=== PATIENT | female | born 1950 ===

== ENCOUNTER → 2019-03-22 | Emergency (ER) | payer OTHER ==
[~2019-03-22] VITALS: Ht 165.1 cm; Wt 99.8 kg
[~2019-03-22] MED LIST: CARVEDILOL25 MG; NORVASC2.5 MG
== END | disposition home or self-care (01) ==
LOC: ER 12:20
DX: S80.02XA Contusion of left knee, initial encounter (principal); W01.198A Fall on same level from slipping, tripping and stumbling with subsequent striking against other object, initial encounter; Y93.01 Activity, walking, marching and hiking; Y92.480 Sidewalk as the place of occurrence of the external cause; Y99.8 Other external cause status